=== PATIENT | female | born 1950 | race Caucasian/White ===

== ENCOUNTER 2018-01-17 20:10 | Inpatient (IN) | payer MEDICAID, OTHER ==
[2018-01-17] MEDS: ASPIRIN 325 MG TAB PO (21:40)
[2018-01-17] MEDS: NITROGLYCERIN 2% 1 GM OINT PKT TD (21:40)
[2018-01-17 21:45] LABS: ADD MAN DIFF? NO
[2018-01-17 21:48] LABS: WHITE BLOOD COUNT 8.7 10^3/ul (4.8-10.8)
[2018-01-17 21:48] LABS: BASOPHIL # 0.1 10^3/ul (0.0-0.1); BASOPHILS % 1.1 % (0.0-2.0); EOSINOPHILS # 0.1 10^3/ul (0.0-0.5); HEMATOCRIT 47.2 % (37.0-47.0); HEMOGLOBIN 15.7 g/dl (12.0-16.0); LYMPHOCYTES # 2.7 10^3/ul (0.8-2.9); LYMPHOCYTES % 31.4 % (15.0-51.0); MEAN CORPUSCULAR HEMOGLOBIN 28.4 pg (29.0-33.0); MEAN CORPUSCULAR HGB CONC 33.3 g/dl (32.0-37.0); MEAN CORPUSCULAR VOLUME 85.5 fl (82.0-101.0); MEAN PLATELET VOLUME 10.9 fl (7.4-10.4); MONOCYTE # 0.7 10^3/ul (0.3-0.9); MONOCYTES % 7.6 % (0.0-11.0); NEUTROPHIL # 5.1 10^3/ul (1.6-7.5); NEUTROPHILS % 58.6 % (39.0-77.0); PLATELET COUNT 270 10^3/UL (140-415); RED BLOOD COUNT 5.52 10^6/ul (4.20-5.40); RED CELL DISTRIBUTION WIDTH 12.5 % (11.5-14.5)
[2018-01-17 22:12] LABS: ALANINE AMINOTRANSFERASE 32 IU/L (13-69); ALBUMIN 4.7 g/dl (3.3-4.9); ALBUMIN/GLOBULIN RATIO 1.42; ALKALINE PHOSPHATASE 92 IU/L (42-121); ANION GAP 20 (8-16); ASPARTATE AMINO TRANSFERASE 23 IU/L (15-46); BILIRUBIN,INDIRECT 0.4 mg/dl (0-1.1); BILIRUBIN,TOTAL 0.4 mg/dl (0.2-1.3); BLOOD UREA NITROGEN 14 mg/dl (7-20); CALCIUM 9.7 mg/dl (8.4-10.2); CARBON DIOXIDE 23 mmol/L (21-31); CHLORIDE 108 mmol/L (97-110); CREATININE 0.64 mg/dl (0.44-1.00); GLUCOSE 167 mg/dl (70-220); POTASSIUM 3.8 mmol/L (3.5-5.1); SODIUM 147 mmol/L (135-144)
[2018-01-17] MEDS ORDERED: ONDANSETRON 4 MG INJ IV (22:30)
[2018-01-17] MEDS ORDERED: ACETAMINOPHEN 325 MG TAB PO ×2 (22:30→23:30)
[2018-01-17 22:54] LABS: TROPONIN-I 0.468 ng/ml (0.000-0.120)
[2018-01-17] MEDS: morphine 2 MG INJ IV (23:30)
[2018-01-17] MEDS: ENOXAPARIN 80 MG/0.8 ML SYG SC (23:30)
[2018-01-17] MEDS ORDERED: hydrALAzine 20 MG INJ IV (23:30)
[2018-01-17] MEDS ORDERED: BISACODYL (EC) 5 MG TAB PO (23:30)
[2018-01-17] MEDS ORDERED: NACL 0.9% 3 ML SYG IV (23:30)
[2018-01-17] MEDS ORDERED: NITROGLYCERIN (SL) 0.4 MG TAB SL (23:30)
[2018-01-17] MEDS: ONDANSETRON 4 MG INJ IV (23:30)
[2018-01-18] MEDS: PANTOPRAZOLE (EC) 40 MG TAB PO ×2 (00:15→08:30)
[2018-01-18] MEDS: LISINOPRIL 5 MG TAB PO (00:15)
[2018-01-18] MEDS: SOD CHLORIDE 0.9% 1,000 ML IV ×3 (00:15→12:36)
[2018-01-18 01:08] LABS: CREATINE KINASE 111 IU/L (23-200)
[2018-01-18 01:21] LABS: CK INDEX 6.9; CK-MB 7.61 ng/ml (0.0-2.4); TROPONIN-I 0.906 ng/ml (0.000-0.120)
[2018-01-18] MEDS ORDERED: GLUCOSE GEL 15 GRAM TUBE BUCCAL (06:00)
[2018-01-18] MEDS ORDERED: GLUCOSE GEL 15 GRAM TUBE PO ×2 (06:00)
[2018-01-18] MEDS ORDERED: GLUCAGON 1 MG INJ IM (06:00)
[2018-01-18] MEDS ORDERED: DEXTROSE 50% 50 ML SYRINGE IV ×4 (06:00→20:30)
[2018-01-18 06:39] LABS: ADD MAN DIFF? NO
[2018-01-18 06:55] LABS: WHITE BLOOD COUNT 6.9 10^3/ul (4.8-10.8)
[2018-01-18 06:55] LABS: BASOPHIL # 0.1 10^3/ul (0.0-0.1); BASOPHILS % 1.2 % (0.0-2.0); EOSINOPHILS # 0.1 10^3/ul (0.0-0.5); EOSINOPHILS % 1.7 % (0.0-7.0); HEMATOCRIT 41.2 % (37.0-47.0); HEMOGLOBIN 13.4 g/dl (12.0-16.0); LYMPHOCYTES # 2.8 10^3/ul (0.8-2.9); LYMPHOCYTES % 40.7 % (15.0-51.0); MEAN CORPUSCULAR HEMOGLOBIN 28.7 pg (29.0-33.0); MEAN CORPUSCULAR HGB CONC 32.5 g/dl (32.0-37.0); MEAN CORPUSCULAR VOLUME 88.2 fl (82.0-101.0); MEAN PLATELET VOLUME 11.4 fl (7.4-10.4); MONOCYTE # 0.6 10^3/ul (0.3-0.9); MONOCYTES % 8.2 % (0.0-11.0); NEUTROPHIL # 3.3 10^3/ul (1.6-7.5); NEUTROPHILS % 48.1 % (39.0-77.0); PLATELET COUNT 248 10^3/UL (140-415); RED BLOOD COUNT 4.67 10^6/ul (4.20-5.40)
[2018-01-18] MEDS ORDERED: ALBUMIN HUMAN 25% 100 ML INJ (07:00)
[2018-01-18] MEDS ORDERED: NITROGLYCERIN 50 MG/D5W 250 ML BTL (07:00)
[2018-01-18 07:02] LABS: HEMOGLOBIN A1C 8.7 % (0-5.9)
[2018-01-18 07:25] LABS: ALANINE AMINOTRANSFERASE 31 IU/L (13-69); ALBUMIN 3.6 g/dl (3.3-4.9); ALBUMIN/GLOBULIN RATIO 1.38; ALKALINE PHOSPHATASE 65 IU/L (42-121); ANION GAP 12 (8-16); ASPARTATE AMINO TRANSFERASE 38 IU/L (15-46); BILIRUBIN,INDIRECT 0.4 mg/dl (0-1.1); BILIRUBIN,TOTAL 0.4 mg/dl (0.2-1.3); BLOOD UREA NITROGEN 14 mg/dl (7-20); CALCIUM 9.1 mg/dl (8.4-10.2); CARBON DIOXIDE 28 mmol/L (21-31); CHLORIDE 111 mmol/L (97-110); CHOL/HDL RATIO 7.3 RATIO; CHOLESTEROL 243 mg/dl (100-200); CREATININE 0.64 mg/dl (0.44-1.00); GLUCOSE 118 mg/dl (70-220); HDL CHOLESTEROL 33 mg/dl (35-98); LDL CHOLESTEROL,CALCULATED 170 mg/dl; MAGNESIUM 2.1 mg/dl (1.7-2.5); POTASSIUM 4.1 mmol/L (3.5-5.1); SODIUM 147 mmol/L (135-144); TOTAL PROTEIN 6.2 g/dl (6.1-8.1); TRIGLYCERIDES 199 mg/dl (0-149)
[2018-01-18 07:30] LABS: CK INDEX 9.2; CREATINE KINASE 184 IU/L (23-200)
[2018-01-18] MEDS: ASPIRIN 81 MG TAB PO (08:30)
[2018-01-18] MEDS: INSULIN ASPART [NOVOLOG] 3 ML PEN SC ×2 (08:30→13:00)
[2018-01-18] MEDS ORDERED: ENOXAPARIN 80 MG/0.8 ML SYG SC (09:00)
[2018-01-18] MEDS ORDERED: ENOXAPARIN 100 MG/ML SYG SC (09:00)
[2018-01-18] MEDS: HEPARIN 1000 UNITS/ML 10 ML INJ IV (10:26)
[2018-01-18] MEDS: HEPARIN 25000 UNITS/250 ML 250 ML IV (10:27)
[2018-01-18 10:36] LABS: ADD MAN DIFF? NO
[2018-01-18 10:41] LABS: BASOPHIL # 0.1 10^3/ul (0.0-0.1); BASOPHILS % 0.9 % (0.0-2.0); EOSINOPHILS # 0.1 10^3/ul (0.0-0.5); EOSINOPHILS % 1.2 % (0.0-7.0); HEMATOCRIT 40.9 % (37.0-47.0); HEMOGLOBIN 13.7 g/dl (12.0-16.0); LYMPHOCYTES # 2.2 10^3/ul (0.8-2.9); LYMPHOCYTES % 28.2 % (15.0-51.0); MEAN CORPUSCULAR HEMOGLOBIN 29.1 pg (29.0-33.0); MEAN CORPUSCULAR HGB CONC 33.5 g/dl (32.0-37.0); MONOCYTE # 0.7 10^3/ul (0.3-0.9); MONOCYTES % 8.4 % (0.0-11.0); NEUTROPHIL # 4.7 10^3/ul (1.6-7.5); NEUTROPHILS % 61.2 % (39.0-77.0); PLATELET COUNT 260 10^3/UL (140-415); RED CELL DISTRIBUTION WIDTH 12.8 % (11.5-14.5)
[2018-01-18 10:41] LABS: WHITE BLOOD COUNT 7.7 10^3/ul (4.8-10.8)
[2018-01-18 11:00] LABS: INR 0.94; PROTIME 12.7 Sec (11.9-14.9)
[2018-01-18 11:01] LABS: PARTIAL THROMBOPLASTIN TIME 34.9 Sec (25.0-35.0)
[2018-01-18] MEDS ORDERED: LIDOCAINE 1% (MDV) 20 ML INJ (11:37)
[2018-01-18] MEDS ORDERED: HEPARIN 1000 UNITS/NS (A-LINE) 1,000 ML ×2 (11:37→11:39)
[2018-01-18] MEDS ORDERED: VERAPAMIL 5 MG INJ (12:05)
[2018-01-18] MEDS ORDERED: HEPARIN 1000 UNITS/ML 10 ML INJ ×4 (12:05→15:59)
[2018-01-18] MEDS ORDERED: NITROGLYCERIN (IC) 100 MCG/ML INJ (12:06)
[2018-01-18] MEDS ORDERED: FENTAnyl 50 MCG/ML VIAL (12:14)
[2018-01-18] MEDS ORDERED: ACETAMINOPHEN 325 MG TAB PO (13:00)
[2018-01-18] MEDS ORDERED: ONDANSETRON 4 MG INJ IV ×2 (13:00→20:30)
[2018-01-18] MEDS ORDERED: AL HYDROX/MG HYDROX/SIMETH 30 ML CUP PO (13:00)
[2018-01-18] MEDS ORDERED: SODIUM CL BACTERIOSTATIC 30 ML INJ (13:26)
[2018-01-18] MEDS: CEFAZOLIN 2 GM/50 ML (PMX) 50 ML IVPB (14:00)
[2018-01-18] MEDS ORDERED: TRANEXAMIC ACID 1,000 MG/10 ML VIAL (14:00)
[2018-01-18 14:30] LABS: PARTIAL THROMBOPLASTIN TIME 40.1 Sec (25.0-35.0)
[2018-01-18] MEDS: PHENYLephrine 20MG IN 250 ML 250 ML IV (14:30)
[2018-01-18] MEDS: INSULIN HUMAN REGULAR 100 UNIT in SOD CHLORIDE 0.9% 99 ML IVPB (14:30)
[2018-01-18] MEDS: HEPARIN (10000 UNITS/ML) 10,000 UNIT, MILRINONE LACTATE 10 MG in SOD CHLORIDE 0.9% 1,00... SC (14:30)
[2018-01-18] MEDS: NORepinephrine 8MG/250 ML (PMX 250 ML IV (14:30)
[2018-01-18] MEDS: EPINEPHrine 4 MG in DEXTROSE 5% 246 ML IV (14:30)
[2018-01-18] MEDS: MILRINONE LACTATE 2 MG in SOD CHLORIDE 0.9% 50 ML IV (14:30)
[2018-01-18] MEDS ORDERED: ETOMIDATE 20 MG INJ (14:48)
[2018-01-18] MEDS ORDERED: LIDOCAINE 2% (SDV) 5 ML INJ (14:48)
[2018-01-18] MEDS ORDERED: PROPOFOL 100 ML (14:48)
[2018-01-18] MEDS ORDERED: ROCURONIUM 50 MG INJ (14:48)
[2018-01-18] MEDS ORDERED: MIDAZOLAM 5 ML ×2 (14:48)
[2018-01-18] MEDS ORDERED: SUCCINYLCHOLINE CHLORIDE 100 MG/5 ML SYG IV (14:49)
[2018-01-18] MEDS ORDERED: PROTAMINE 250 MG INJ ×2 (14:49→18:35)
[2018-01-18] MEDS ORDERED: MAGNESIUM SULFATE (MG) 50% 10 ML INJ (14:55)
[2018-01-18] MEDS ORDERED: NA BICARBONATE 8.4% 50 ML SYG (14:55)
[2018-01-18] MEDS ORDERED: POTASSIUM CHLORIDE 40 MEQ INJ (14:55)
[2018-01-18] MEDS ORDERED: ALBUMIN HUMAN 25% 200 ML (14:56)
[2018-01-18] MEDS ORDERED: CA CHLORIDE 10% 10 ML SYRINGE ×2 (14:56→18:17)
[2018-01-18] MEDS ORDERED: PHENYLephrine 10 MG INJ (14:56)
[2018-01-18] MEDS ORDERED: LIDOCAINE 100 MG SYRINGE (14:56)
[2018-01-18] MEDS ORDERED: MANNITOL 20% 250 ML IV (14:56)
[2018-01-18] MEDS ORDERED: morphine 10 MG INJ ×2 (15:57→16:36)
[2018-01-18] MEDS: PAPAVERINE 60 MG INJ (16:11)
[2018-01-18] MEDS: HEPARIN 1000 UNITS/ML 10 ML INJ (16:12)
[2018-01-18] MEDS: VANCOMYCIN 1 GM INJ (16:12)
[2018-01-18] MEDS ORDERED: FUROSEMIDE 10 ML (17:25)
[2018-01-18] MEDS ORDERED: HYDROmorphONE 2 MG/ML SYG (19:11)
[2018-01-18] MEDS: ASPIRIN 600 MG SUPP PR (19:40)
[2018-01-18 20:10] LABS: ADD MAN DIFF? NO
[2018-01-18 20:14] LABS: WHITE BLOOD COUNT 18.2 10^3/ul (4.8-10.8)
[2018-01-18 20:14] LABS: BASOPHIL # 0.1 10^3/ul (0.0-0.1); BASOPHILS % 0.3 % (0.0-2.0); EOSINOPHILS # 0.1 10^3/ul (0.0-0.5); EOSINOPHILS % 0.4 % (0.0-7.0); HEMOGLOBIN 9.8 g/dl (12.0-16.0); LYMPHOCYTES # 3.9 10^3/ul (0.8-2.9); LYMPHOCYTES % 21.5 % (15.0-51.0); MEAN CORPUSCULAR HGB CONC 32.7 g/dl (32.0-37.0); MEAN CORPUSCULAR VOLUME 88.8 fl (82.0-101.0); MEAN PLATELET VOLUME 11.3 fl (7.4-10.4); MONOCYTE # 0.2 10^3/ul (0.3-0.9); MONOCYTES % 0.9 % (0.0-11.0); NEUTROPHIL # 13.8 10^3/ul (1.6-7.5); NEUTROPHILS % 76.1 % (39.0-77.0); PLATELET COUNT 173 10^3/UL (140-415); RED BLOOD COUNT 3.38 10^6/ul (4.20-5.40); RED CELL DISTRIBUTION WIDTH 12.8 % (11.5-14.5)
[2018-01-18] MEDS ORDERED: ACETAMINOPHEN 650 MG SUPP PR (20:30)
[2018-01-18] MEDS ORDERED: Treatment of Hypoglycemia: XX (20:30)
[2018-01-18] MEDS ORDERED: MILRINONE LACTATE 100 ML IV (20:30)
[2018-01-18] MEDS ORDERED: POTASSIUM CHLORIDE 150 ML (20:34)
[2018-01-18 20:43] LABS: ANION GAP 18 (8-16); BLOOD UREA NITROGEN 10 mg/dl (7-20); CALCIUM 10.8 mg/dl (8.4-10.2); CARBON DIOXIDE 21 mmol/L (21-31); CHLORIDE 118 mmol/L (97-110); CREATININE 0.67 mg/dl (0.44-1.00); GLUCOSE 178 mg/dl (70-220); MAGNESIUM 2.3 mg/dl (1.7-2.5); POTASSIUM 3.1 mmol/L (3.5-5.1); SODIUM 154 mmol/L (135-144)
[2018-01-18 20:45] LABS: PLATELET COUNT 173 10^3/UL (140-415)
[2018-01-18 20:54] LABS: INR 1.39; PROTIME 17.3 Sec (11.9-14.9); PT RATIO 1.4
[2018-01-18 20:55] LABS: PARTIAL THROMBOPLASTIN TIME 40.1 Sec (25.0-35.0)
[2018-01-18 20:58] LABS: THROMBIN TIME 28.8 SEC (13.8-19.1)
[2018-01-18] MEDS: MEPERIDINE 25 MG INJ IV (21:00)
[2018-01-18] MEDS ORDERED: CLEVIDIPINE BUTYRATE 50 ML IV (21:00)
[2018-01-18] MEDS: ACCU-CHEK XX ×3 (21:00→23:54)
[2018-01-18 21:03] LABS: AADO2 Arterial 368.1 mmHg (7.0-24.0); Arterial Base Excess -9.5 mmol/L (-3.0-3); Arterial Blood Gas Oxygen Sat 93.3 mmHG (95.0-98.0); Arterial COHb 0.4 % (0.0-3.0); Arterial Fraction of Oxyhgb 92.6 % (93.0-99.0); Arterial MetHb 0.4 % (0.0-1.5); Arterial Total Hemglobin 12.4 g/dl (12.0-18.0); Arterial pCO2 45.1 mmhg (35-45); MODE VENT - AC; Site A-Line
[2018-01-18 21:06] LABS: MODE VENT - AC; MetHgb Mixed Venous 0.5 %; Mixed Venous Base Excess -7.7 mmol/L; Mixed Venous COHb 0 %; Mixed Venous Fraction OxyHgb 83.1 %; Mixed Venous Oxygen Sat 83.5 mmHG (65.0-75.0); Mixed Venous Total Hemglobin 10.6 g/dl; Sample Type Blood venous; Site VENOUS LINE
[2018-01-18 21:07] LABS: FIBRIN SPLIT PRODUCT <10 ug/ml (<10)
[2018-01-18] MEDS: NA BICARBONATE 8.4% 50 ML SYG IV (21:18)
[2018-01-18] MEDS: ALBUMIN HUMAN 5% 250 ML IV ×2 (21:19→23:20)
[2018-01-18 21:23] LABS: D-DIMER < 220.00 ng/ml (<460)
[2018-01-18] MEDS ORDERED: CLEVIDIPINE BUTYRATE 100 ML IV (21:30)
[2018-01-18] MEDS: POTASSIUM CHLORIDE 40 MEQ, CALCIUM CHLORIDE 10% 1 GM in DEXTROSE 5%-0.225% NACL 1,000 ML IV (21:34)
[2018-01-18] MEDS: INSULIN HUMAN REGULAR 100 UNIT in SOD CHLORIDE 0.9% 99 ML IV (21:53)
[2018-01-18] MEDS: POTASSIUM CHLORIDE 50 ML IVPB ×2 (22:03→23:17)
[2018-01-18 22:14] LABS: AADO2 Arterial 384.9 mmHg (7.0-24.0); Arterial Base Excess -2.3 mmol/L (-3.0-3); Arterial Blood Gas Oxygen Sat 95.1 mmHG (95.0-98.0); Arterial COHb 0.3 % (0.0-3.0); Arterial Fraction of Oxyhgb 94.5 % (93.0-99.0); Arterial HCO3 21.2 mmol/L (22.0-26.0); Arterial MetHb 0.3 % (0.0-1.5); Arterial Total Hemglobin 11.2 g/dl (12.0-18.0); Arterial pCO2 32.2 mmhg (35-45); MODE VENT - AC; Site A-Line
[2018-01-18] MEDS: CEFAZOLIN 1 GM/50 ML (PMX) 50 ML IVPB (22:16)
[2018-01-18] MEDS: ATORVASTATIN 40 MG TAB PO (22:16)
[2018-01-19] MEDS: POTASSIUM CHLORIDE 40 MEQ in DEXTROSE 5%-0.225% NACL 1,000 ML IV ×2 (01:16→19:08)
[2018-01-19 01:46] LABS: ADD MAN DIFF? NO
[2018-01-19] MEDS: ACCU-CHEK XX ×24 (01:46→23:01)
[2018-01-19 01:48] LABS: BASOPHILS % 0.2 % (0.0-2.0); HEMOGLOBIN 9.7 g/dl (12.0-16.0); LYMPHOCYTES # 0.7 10^3/ul (0.8-2.9); LYMPHOCYTES % 8.2 % (15.0-51.0); MEAN CORPUSCULAR HGB CONC 33.4 g/dl (32.0-37.0); MEAN CORPUSCULAR VOLUME 86.8 fl (82.0-101.0); MEAN PLATELET VOLUME 10.6 fl (7.4-10.4); MONOCYTE # 0.7 10^3/ul (0.3-0.9); MONOCYTES % 8.1 % (0.0-11.0); NEUTROPHIL # 7.5 10^3/ul (1.6-7.5); NEUTROPHILS % 83.2 % (39.0-77.0); PLATELET COUNT 152 10^3/UL (140-415); RED BLOOD COUNT 3.34 10^6/ul (4.20-5.40)
[2018-01-19] MEDS ORDERED: ACCU-CHEK XX (02:00)
[2018-01-19 02:06] LABS: ANION GAP 12 (8-16); BLOOD UREA NITROGEN 9 mg/dl (7-20); CALCIUM 10.1 mg/dl (8.4-10.2); CARBON DIOXIDE 28 mmol/L (21-31); CHLORIDE 114 mmol/L (97-110); CREATININE 0.64 mg/dl (0.44-1.00); GLUCOSE 165 mg/dl (70-220); MAGNESIUM 2.1 mg/dl (1.7-2.5); POTASSIUM 3.9 mmol/L (3.5-5.1); SODIUM 150 mmol/L (135-144)
[2018-01-19 02:09] LABS: INR 1.16; PT RATIO 1.2
[2018-01-19] MEDS: morphine 2 MG INJ IV ×4 (02:09→21:01)
[2018-01-19] MEDS: PROPOFOL 100 ML IV ×3 (02:14→23:03)
[2018-01-19] MEDS: POTASSIUM CHLORIDE 50 ML IVPB ×5 (03:19→22:22)
[2018-01-19] MEDS: SOD CHLORIDE 0.9% 500 ML IV ×2 (04:15→21:27)
[2018-01-19] MEDS: CEFAZOLIN 1 GM/50 ML (PMX) 50 ML IVPB ×2 (04:19→12:30)
[2018-01-19 05:59] LABS: Arterial Base Excess -4.7 mmol/L (-3.0-3); Arterial Blood Gas Oxygen Sat 96.6 mmHG (95.0-98.0); Arterial COHb 0.3 % (0.0-3.0); Arterial Fraction of Oxyhgb 95.9 % (93.0-99.0); Arterial MetHb 0.4 % (0.0-1.5); Arterial Total Hemglobin 9.1 g/dl (12.0-18.0); Arterial pCO2 25.2 mmhg (35-45); MODE VENT - AC; Site A-Line
[2018-01-19 06:11] LABS: MAGNESIUM 1.9 mg/dl (1.7-2.5)
[2018-01-19 06:40] LABS: INR 1.27; PROTIME 16.1 Sec (11.9-14.9); PT RATIO 1.3
[2018-01-19 06:41] LABS: PARTIAL THROMBOPLASTIN TIME 41.7 Sec (25.0-35.0)
[2018-01-19] MEDS: NACL 3% FOR INHALATION 15 ML NEBU NEB (07:00)
[2018-01-19] MEDS: NITROGLYCERIN 50 MG/D5W (PMX) 250 ML IV ×2 (07:00→21:28)
[2018-01-19] MEDS: HYDROmorphONE 0.5 MG/0.5 ML SYG IV ×4 (07:58→15:47)
[2018-01-19] MEDS ORDERED: morphine 2 MG INJ IV (08:30)
[2018-01-19] MEDS ORDERED: GLUCAGON 1 MG INJ IM (08:30)
[2018-01-19] MEDS ORDERED: GLUCOSE GEL 15 GRAM TUBE BUCCAL (08:30)
[2018-01-19] MEDS ORDERED: ONDANSETRON 4 MG INJ IV (08:30)
[2018-01-19] MEDS ORDERED: DEXTROSE 50% 50 ML SYRINGE IV (08:30)
[2018-01-19] MEDS: PANTOPRAZOLE (EC) 40 MG TAB PO ×2 (08:30→09:00)
[2018-01-19] MEDS ORDERED: ACETAMINOPHEN 325 MG TAB PO (08:30)
[2018-01-19] MEDS: FAMOTIDINE 20 MG INJ IV ×2 (08:46→19:52)
[2018-01-19] MEDS: MAGNESIUM SULFATE 2 GM/50 ML 50 ML IVPB (08:46)
[2018-01-19] MEDS: ASPIRIN 81 MG TAB PO (09:00)
[2018-01-19] MEDS ORDERED: FAMOTIDINE 20 MG TAB PO (09:00)
[2018-01-19 10:46] LABS: ADD MAN DIFF? NO
[2018-01-19 10:50] LABS: BASOPHILS % 0.2 % (0.0-2.0); HEMATOCRIT 30.3 % (37.0-47.0); HEMOGLOBIN 9.7 g/dl (12.0-16.0); LYMPHOCYTES % 10.5 % (15.0-51.0); MEAN CORPUSCULAR VOLUME 90.4 fl (82.0-101.0); MEAN PLATELET VOLUME 11.2 fl (7.4-10.4); MONOCYTE # 0.8 10^3/ul (0.3-0.9); MONOCYTES % 8.1 % (0.0-11.0); NEUTROPHIL # 7.5 10^3/ul (1.6-7.5); NEUTROPHILS % 80.8 % (39.0-77.0); PLATELET COUNT 153 10^3/UL (140-415); RED BLOOD COUNT 3.35 10^6/ul (4.20-5.40); RED CELL DISTRIBUTION WIDTH 13.1 % (11.5-14.5)
[2018-01-19 10:50] LABS: WHITE BLOOD COUNT 9.3 10^3/ul (4.8-10.8)
[2018-01-19 11:52] LABS: AADO2 Arterial 205.9 mmHg (7.0-24.0); Arterial Base Excess -2.3 mmol/L (-3.0-3); Arterial Blood Gas Oxygen Sat 93.1 mmHG (95.0-98.0); Arterial COHb 0.3 % (0.0-3.0); Arterial Fraction of Oxyhgb 92.8 % (93.0-99.0); Arterial HCO3 22.7 mmol/L (22.0-26.0); Arterial MetHb 0 % (0.0-1.5); Arterial Total Hemglobin 10.6 g/dl (12.0-18.0); Arterial pCO2 39.9 mmhg (35-45); Blood Gas PS 10; MODE VENT - CPAP; Site A-Line
[2018-01-19 12:43] LABS: ANION GAP 17 (8-16); BLOOD UREA NITROGEN 8 mg/dl (7-20); CALCIUM 8.8 mg/dl (8.4-10.2); CARBON DIOXIDE 25 mmol/L (21-31); CHLORIDE 114 mmol/L (97-110); CREATININE 0.62 mg/dl (0.44-1.00); GLUCOSE 101 mg/dl (70-220); MAGNESIUM 2.7 mg/dl (1.7-2.5); SODIUM 152 mmol/L (135-144)
[2018-01-19] MEDS ORDERED: FUROSEMIDE 20 MG INJ IV (13:30)
[2018-01-19] MEDS: BENAZEPRIL 5 MG TAB PO (15:30)
[2018-01-19] MEDS: OXYCODONE/ACETAMINOPHEN (5/325) TAB PO (16:54)
[2018-01-19] MEDS: LANSOPRAZOLE 30 MG CAP GTB (18:26)
[2018-01-19] MEDS: INSULIN HUMAN REGULAR 100 UNIT in SOD CHLORIDE 0.9% 99 ML IV (19:11)
[2018-01-19 20:33] LABS: ADD MAN DIFF? NO
[2018-01-19 20:43] LABS: HEMATOCRIT 27.5 % (37.0-47.0)
[2018-01-19 20:44] LABS: BASOPHILS % 0.4 % (0.0-2.0); HEMATOCRIT 27.1 % (37.0-47.0); HEMOGLOBIN 8.8 g/dl (12.0-16.0); LYMPHOCYTES # 1.8 10^3/ul (0.8-2.9); LYMPHOCYTES % 19.7 % (15.0-51.0); MEAN CORPUSCULAR HEMOGLOBIN 28.9 pg (29.0-33.0); MEAN CORPUSCULAR HGB CONC 32.5 g/dl (32.0-37.0); MEAN CORPUSCULAR VOLUME 89.1 fl (82.0-101.0); MEAN PLATELET VOLUME 11.1 fl (7.4-10.4); MONOCYTES % 10.3 % (0.0-11.0); NEUTROPHIL # 6.4 10^3/ul (1.6-7.5); NEUTROPHILS % 69.3 % (39.0-77.0); PLATELET COUNT 128 10^3/UL (140-415); RED BLOOD COUNT 3.04 10^6/ul (4.20-5.40); RED CELL DISTRIBUTION WIDTH 13.2 % (11.5-14.5)
[2018-01-19 20:44] LABS: WHITE BLOOD COUNT 9.3 10^3/ul (4.8-10.8)
[2018-01-19 20:51] LABS: ANION GAP 14 (8-16); BLOOD UREA NITROGEN 9 mg/dl (7-20); CALCIUM 8.6 mg/dl (8.4-10.2); CARBON DIOXIDE 25 mmol/L (21-31); CHLORIDE 111 mmol/L (97-110); GLUCOSE 109 mg/dl (70-220); MAGNESIUM 2.4 mg/dl (1.7-2.5); SODIUM 146 mmol/L (135-144)
[2018-01-19 20:54] LABS: INR 1.23; PROTIME 15.7 Sec (11.9-14.9); PT RATIO 1.2
[2018-01-19 20:55] LABS: PARTIAL THROMBOPLASTIN TIME 36.5 Sec (25.0-35.0)
[2018-01-19] MEDS: ATORVASTATIN 40 MG TAB PO (21:07)
[2018-01-20] MEDS: ACCU-CHEK XX ×23 (00:03→23:06)
[2018-01-20] MEDS: OXYCODONE/ACETAMINOPHEN (5/325) TAB PO ×2 (00:15→04:09)
[2018-01-20] MEDS: POTASSIUM CHLORIDE 50 ML IVPB (00:31)
[2018-01-20 00:55] LABS: COLLAGEN/ADP 113 Secs. (40-147); COLLAGEN/EPI 220 Secs. (51-198)
[2018-01-20] MEDS: morphine 2 MG INJ IV ×4 (02:15→23:04)
[2018-01-20] MEDS: LANSOPRAZOLE 30 MG CAP GTB ×2 (05:30→18:31)
[2018-01-20 06:08] LABS: ADD MAN DIFF? NO
[2018-01-20 06:11] LABS: BASOPHIL # 0.1 10^3/ul (0.0-0.1); BASOPHILS % 0.6 % (0.0-2.0); EOSINOPHILS % 0.4 % (0.0-7.0); HEMATOCRIT 27.4 % (37.0-47.0); HEMOGLOBIN 8.7 g/dl (12.0-16.0); LYMPHOCYTES # 1.7 10^3/ul (0.8-2.9); MEAN CORPUSCULAR HEMOGLOBIN 28.6 pg (29.0-33.0); MEAN CORPUSCULAR HGB CONC 31.8 g/dl (32.0-37.0); MEAN CORPUSCULAR VOLUME 90.1 fl (82.0-101.0); MEAN PLATELET VOLUME 12.3 fl (7.4-10.4); MONOCYTE # 0.9 10^3/ul (0.3-0.9); MONOCYTES % 9.2 % (0.0-11.0); NEUTROPHIL # 7.2 10^3/ul (1.6-7.5); NEUTROPHILS % 72.4 % (39.0-77.0); PLATELET COUNT 125 10^3/UL (140-415); RED BLOOD COUNT 3.04 10^6/ul (4.20-5.40); RED CELL DISTRIBUTION WIDTH 13.2 % (11.5-14.5)
[2018-01-20 06:34] LABS: INR 1.17; PROTIME 15.1 Sec (11.9-14.9); PT RATIO 1.2
[2018-01-20 06:35] LABS: ANION GAP 11 (8-16); BLOOD UREA NITROGEN 8 mg/dl (7-20); CALCIUM 8.5 mg/dl (8.4-10.2); CARBON DIOXIDE 25 mmol/L (21-31); CHLORIDE 112 mmol/L (97-110); CREATININE 0.59 mg/dl (0.44-1.00); GLUCOSE 115 mg/dl (70-220); PARTIAL THROMBOPLASTIN TIME 38.3 Sec (25.0-35.0); POTASSIUM 4.3 mmol/L (3.5-5.1); SODIUM 144 mmol/L (135-144)
[2018-01-20 06:35] LABS: MAGNESIUM 2.3 mg/dl (1.7-2.5)
[2018-01-20] MEDS: FAMOTIDINE 20 MG INJ IV (08:00)
[2018-01-20] MEDS: BENAZEPRIL 5 MG TAB PO (08:50)
[2018-01-20] MEDS: ASPIRIN 81 MG TAB PO (08:50)
[2018-01-20] MEDS: POTASSIUM CHLORIDE 40 MEQ in DEXTROSE 5%-0.225% NACL 1,000 ML IV (10:14)
[2018-01-20] MEDS: DIGOXIN 500 MCG INJ IV (13:06)
[2018-01-20] MEDS: FUROSEMIDE 20 MG INJ IV (13:06)
[2018-01-20] MEDS: PROPOFOL 100 ML IV (14:00)
[2018-01-20] MEDS: ENOXAPARIN 80 MG/0.8 ML SYG SC (17:33)
[2018-01-20] MEDS: ATORVASTATIN 40 MG TAB PO (21:21)
[2018-01-21] MEDS: NITROGLYCERIN 50 MG/D5W (PMX) 250 ML IV (00:41)
[2018-01-21] MEDS: ACCU-CHEK XX ×8 (01:15→08:00)
[2018-01-21] MEDS: PROPOFOL 100 ML IV (02:00)
[2018-01-21] MEDS: INSULIN HUMAN REGULAR 100 UNIT in SOD CHLORIDE 0.9% 99 ML IV (02:53)
[2018-01-21] MEDS: POTASSIUM CHLORIDE 40 MEQ in DEXTROSE 5%-0.225% NACL 1,000 ML IV (03:14)
[2018-01-21] MEDS: morphine 2 MG INJ IV ×2 (04:32→13:00)
[2018-01-21 06:06] LABS: ANION GAP 10 (8-16); BLOOD UREA NITROGEN 8 mg/dl (7-20); CALCIUM 8.3 mg/dl (8.4-10.2); CARBON DIOXIDE 30 mmol/L (21-31); CHLORIDE 107 mmol/L (97-110); CREATININE 0.49 mg/dl (0.44-1.00); GLUCOSE 212 mg/dl (70-220); MAGNESIUM 2.2 mg/dl (1.7-2.5); PHOSPHORUS 2.9 mg/dl (2.5-4.9); POTASSIUM 4.1 mmol/L (3.5-5.1); SODIUM 143 mmol/L (135-144)
[2018-01-21 06:21] LABS: ADD MAN DIFF? NO
[2018-01-21 06:42] LABS: WHITE BLOOD COUNT 9.1 10^3/ul (4.8-10.8)
[2018-01-21 06:42] LABS: BASOPHIL # 0.1 10^3/ul (0.0-0.1); BASOPHILS % 0.7 % (0.0-2.0); EOSINOPHILS # 0.1 10^3/ul (0.0-0.5); EOSINOPHILS % 1.2 % (0.0-7.0); HEMATOCRIT 26.1 % (37.0-47.0); HEMOGLOBIN 8.4 g/dl (12.0-16.0); LYMPHOCYTES # 1.3 10^3/ul (0.8-2.9); LYMPHOCYTES % 13.8 % (15.0-51.0); MEAN CORPUSCULAR HGB CONC 32.2 g/dl (32.0-37.0); MONOCYTE # 0.7 10^3/ul (0.3-0.9); MONOCYTES % 7.6 % (0.0-11.0); NEUTROPHIL # 6.9 10^3/ul (1.6-7.5); NEUTROPHILS % 75.9 % (39.0-77.0); NUCLEATED RED BLOOD CELLS% 0.4 /100WBC (0.0-0.0); PLATELET COUNT 156 10^3/UL (140-415); RED CELL DISTRIBUTION WIDTH 12.5 % (11.5-14.5)
[2018-01-21] MEDS: LANSOPRAZOLE 30 MG CAP GTB ×2 (06:49→17:59)
[2018-01-21] MEDS: ASPIRIN 81 MG TAB PO (07:39)
[2018-01-21] MEDS: OXYCODONE/ACETAMINOPHEN (5/325) TAB PO ×3 (07:40→20:49)
[2018-01-21] MEDS ORDERED: BENAZEPRIL 5 MG TAB PO (09:00)
[2018-01-21] MEDS: Discontinue current oral sulfonylureas (glyburide, glipizide, and/or glimepiride) prior to XX (10:33)
[2018-01-21] MEDS: HYPOGLYCEMIA PROTOCOL when Glucose is <70 mg/dL or symptomatic <90 mg/dL. XX (10:33)
[2018-01-21] MEDS ORDERED: INSULIN ASPART [NOVOLOG] 3 ML PEN SC (11:30)
[2018-01-21] MEDS: INSULIN GLARGINE [LANtus] 3 ML PEN SC (11:35)
[2018-01-21] MEDS: INSULIN ASPART [NOVOLOG] 3 ML PEN SC ×5 (12:28→21:00)
[2018-01-21] MEDS: ENOXAPARIN 80 MG/0.8 ML SYG SC (15:47)
[2018-01-21] MEDS ORDERED: INSULIN GLARGINE [LANtus] 3 ML PEN SC (20:00)
[2018-01-21] MEDS: ATORVASTATIN 40 MG TAB PO (20:49)
[2018-01-22] MEDS: ACCU-CHEK XX (02:00)
[2018-01-22] MEDS: LANSOPRAZOLE 30 MG CAP GTB ×2 (05:29→17:17)
[2018-01-22 07:59] LABS: ADD MAN DIFF? NO
[2018-01-22] MEDS: INSULIN ASPART [NOVOLOG] 3 ML PEN SC ×7 (08:00→21:00)
[2018-01-22 08:03] LABS: BASOPHIL # 0.1 10^3/ul (0.0-0.1); BASOPHILS % 0.8 % (0.0-2.0); EOSINOPHILS # 0.1 10^3/ul (0.0-0.5); EOSINOPHILS % 1.6 % (0.0-7.0); HEMATOCRIT 28.9 % (37.0-47.0); HEMOGLOBIN 9.3 g/dl (12.0-16.0); LYMPHOCYTES # 1.4 10^3/ul (0.8-2.9); LYMPHOCYTES % 18.3 % (15.0-51.0); MEAN CORPUSCULAR HEMOGLOBIN 29.1 pg (29.0-33.0); MEAN CORPUSCULAR HGB CONC 32.2 g/dl (32.0-37.0); MEAN CORPUSCULAR VOLUME 90.3 fl (82.0-101.0); MEAN PLATELET VOLUME 11.3 fl (7.4-10.4); MONOCYTE # 0.7 10^3/ul (0.3-0.9); MONOCYTES % 8.8 % (0.0-11.0); NEUTROPHIL # 5.4 10^3/ul (1.6-7.5); PLATELET COUNT 215 10^3/UL (140-415); RED CELL DISTRIBUTION WIDTH 12.4 % (11.5-14.5)
[2018-01-22 08:03] LABS: WHITE BLOOD COUNT 7.7 10^3/ul (4.8-10.8)
[2018-01-22 08:27] LABS: ANION GAP 16 (8-16); BLOOD UREA NITROGEN 15 mg/dl (7-20); CALCIUM 8.6 mg/dl (8.4-10.2); CARBON DIOXIDE 28 mmol/L (21-31); CHLORIDE 107 mmol/L (97-110); CREATININE 0.59 mg/dl (0.44-1.00); GLUCOSE 143 mg/dl (70-220); POTASSIUM 3.6 mmol/L (3.5-5.1); SODIUM 147 mmol/L (135-144)
[2018-01-22 08:30] LABS: MAGNESIUM 2.3 mg/dl (1.7-2.5)
[2018-01-22] MEDS: BENAZEPRIL 5 MG TAB PO (08:52)
[2018-01-22] MEDS: OXYCODONE/ACETAMINOPHEN (5/325) TAB PO ×2 (08:52→17:17)
[2018-01-22] MEDS: ASPIRIN 81 MG TAB PO (08:53)
[2018-01-22] MEDS: ENOXAPARIN 80 MG/0.8 ML SYG SC (17:17)
[2018-01-22] MEDS: morphine 2 MG INJ IV (18:30)
[2018-01-22] MEDS: ATORVASTATIN 40 MG TAB PO (20:57)
[2018-01-22] MEDS: INSULIN GLARGINE [LANtus] 3 ML PEN SC (21:12)
[2018-01-23] MEDS: ACCU-CHEK XX (01:38)
[2018-01-23] MEDS: OXYCODONE/ACETAMINOPHEN (5/325) TAB PO (03:02)
[2018-01-23] MEDS: LANSOPRAZOLE 30 MG CAP GTB ×2 (05:12→17:31)
[2018-01-23] MEDS: ASPIRIN 81 MG TAB PO (08:10)
[2018-01-23] MEDS: BENAZEPRIL 5 MG TAB PO (08:11)
[2018-01-23] MEDS: INSULIN ASPART [NOVOLOG] 3 ML PEN SC ×7 (08:23→20:30)
[2018-01-23 09:11] LABS: ADD MAN DIFF? NO
[2018-01-23 09:23] LABS: BASOPHIL # 0.1 10^3/ul (0.0-0.1); EOSINOPHILS # 0.2 10^3/ul (0.0-0.5); EOSINOPHILS % 2.9 % (0.0-7.0); HEMATOCRIT 27.8 % (37.0-47.0); HEMOGLOBIN 8.9 g/dl (12.0-16.0); LYMPHOCYTES # 1.7 10^3/ul (0.8-2.9); LYMPHOCYTES % 24.5 % (15.0-51.0); MEAN CORPUSCULAR HEMOGLOBIN 28.8 pg (29.0-33.0); MEAN PLATELET VOLUME 11.2 fl (7.4-10.4); MONOCYTE # 0.6 10^3/ul (0.3-0.9); MONOCYTES % 9.4 % (0.0-11.0); NEUTROPHIL # 4.2 10^3/ul (1.6-7.5); NEUTROPHILS % 61.2 % (39.0-77.0); PLATELET COUNT 214 10^3/UL (140-415); RED BLOOD COUNT 3.09 10^6/ul (4.20-5.40); RED CELL DISTRIBUTION WIDTH 12.4 % (11.5-14.5)
[2018-01-23 09:23] LABS: WHITE BLOOD COUNT 6.8 10^3/ul (4.8-10.8)
[2018-01-23 09:37] LABS: ANION GAP 11 (8-16); BLOOD UREA NITROGEN 17 mg/dl (7-20); CALCIUM 8.1 mg/dl (8.4-10.2); CARBON DIOXIDE 28 mmol/L (21-31); CHLORIDE 109 mmol/L (97-110); CREATININE 0.54 mg/dl (0.44-1.00); GLUCOSE 131 mg/dl (70-220); POTASSIUM 3.3 mmol/L (3.5-5.1); SODIUM 145 mmol/L (135-144)
[2018-01-23] MEDS: POTASSIUM CHLORIDE (SR) 20 MEQ TAB PO (12:03)
[2018-01-23] MEDS: ENOXAPARIN 80 MG/0.8 ML SYG SC (16:18)
[2018-01-23] MEDS: INSULIN GLARGINE [LANtus] 3 ML PEN SC (20:32)
[2018-01-23] MEDS: ATORVASTATIN 40 MG TAB PO (21:11)
[2018-01-24] MEDS: ACCU-CHEK XX (01:58)
[2018-01-24] MEDS: LANSOPRAZOLE 30 MG CAP GTB ×2 (06:19→17:27)
[2018-01-24 09:07] LABS: ADD MAN DIFF? NO
[2018-01-24 09:13] LABS: BASOPHIL # 0.1 10^3/ul (0.0-0.1); BASOPHILS % 0.9 % (0.0-2.0); EOSINOPHILS # 0.2 10^3/ul (0.0-0.5); EOSINOPHILS % 2.4 % (0.0-7.0); HEMATOCRIT 30.8 % (37.0-47.0); HEMOGLOBIN 9.8 g/dl (12.0-16.0); LYMPHOCYTES # 1.9 10^3/ul (0.8-2.9); LYMPHOCYTES % 23.5 % (15.0-51.0); MEAN CORPUSCULAR HGB CONC 31.8 g/dl (32.0-37.0); MONOCYTE # 0.7 10^3/ul (0.3-0.9); MONOCYTES % 8.1 % (0.0-11.0); NEUTROPHIL # 5.1 10^3/ul (1.6-7.5); NEUTROPHILS % 64.2 % (39.0-77.0); PLATELET COUNT 348 10^3/UL (140-415); RED CELL DISTRIBUTION WIDTH 12.5 % (11.5-14.5)
[2018-01-24] MEDS: INSULIN ASPART [NOVOLOG] 3 ML PEN SC ×7 (09:20→20:11)
[2018-01-24] MEDS: BENAZEPRIL 5 MG TAB PO (09:24)
[2018-01-24] MEDS: ASPIRIN 81 MG TAB PO (09:24)
[2018-01-24 09:48] LABS: ANION GAP 14 (8-16); BLOOD UREA NITROGEN 12 mg/dl (7-20); CARBON DIOXIDE 31 mmol/L (21-31); CHLORIDE 107 mmol/L (97-110); CREATININE 0.61 mg/dl (0.44-1.00); GLUCOSE 143 mg/dl (70-220); SODIUM 148 mmol/L (135-144)
[2018-01-24] MEDS: DEXTROSE 5% 1,000 ML IV (11:30)
[2018-01-24] MEDS: ENOXAPARIN 80 MG/0.8 ML SYG SC (17:32)
[2018-01-24] MEDS: ATORVASTATIN 40 MG TAB PO (20:10)
[2018-01-24] MEDS: INSULIN GLARGINE [LANtus] 3 ML PEN SC (20:18)
[2018-01-25] MEDS: ACCU-CHEK XX (01:46)
[2018-01-25] MEDS: DOCUSATE SODIUM 100 MG CAP PO (05:55)
[2018-01-25] MEDS: LANSOPRAZOLE 30 MG CAP GTB ×2 (05:55→16:50)
[2018-01-25] MEDS: ASPIRIN 81 MG TAB PO (08:15)
[2018-01-25] MEDS: BENAZEPRIL 5 MG TAB PO (08:17)
[2018-01-25] MEDS: INSULIN ASPART [NOVOLOG] 3 ML PEN SC ×6 (08:31→17:53)
[2018-01-25 09:12] LABS: ADD MAN DIFF? NO
[2018-01-25 09:18] LABS: BASOPHIL # 0.1 10^3/ul (0.0-0.1); BASOPHILS % 0.9 % (0.0-2.0); EOSINOPHILS # 0.3 10^3/ul (0.0-0.5); EOSINOPHILS % 2.9 % (0.0-7.0); HEMOGLOBIN 10.3 g/dl (12.0-16.0); LYMPHOCYTES # 2.1 10^3/ul (0.8-2.9); LYMPHOCYTES % 23.9 % (15.0-51.0); MEAN CORPUSCULAR HEMOGLOBIN 28.4 pg (29.0-33.0); MEAN CORPUSCULAR HGB CONC 32.2 g/dl (32.0-37.0); MEAN CORPUSCULAR VOLUME 88.2 fl (82.0-101.0); MEAN PLATELET VOLUME 11.2 fl (7.4-10.4); MONOCYTE # 0.7 10^3/ul (0.3-0.9); MONOCYTES % 8.1 % (0.0-11.0); NEUTROPHIL # 5.7 10^3/ul (1.6-7.5); NEUTROPHILS % 63.4 % (39.0-77.0); PLATELET COUNT 408 10^3/UL (140-415); RED BLOOD COUNT 3.63 10^6/ul (4.20-5.40); RED CELL DISTRIBUTION WIDTH 12.5 % (11.5-14.5)
[2018-01-25 09:18] LABS: WHITE BLOOD COUNT 8.9 10^3/ul (4.8-10.8)
[2018-01-25 09:34] LABS: ANION GAP 11 (8-16); BLOOD UREA NITROGEN 13 mg/dl (7-20); CALCIUM 8.8 mg/dl (8.4-10.2); CARBON DIOXIDE 32 mmol/L (21-31); CHLORIDE 108 mmol/L (97-110); CREATININE 0.61 mg/dl (0.44-1.00); GLUCOSE 157 mg/dl (70-220); POTASSIUM 3.7 mmol/L (3.5-5.1); SODIUM 147 mmol/L (135-144)
[2018-01-25] MEDS: OXYCODONE/ACETAMINOPHEN (5/325) TAB PO ×2 (09:45→17:49)
[2018-01-25] MEDS: ENOXAPARIN 80 MG/0.8 ML SYG SC (16:57)
[2018-01-26] MEDS ORDERED: FUROSEMIDE 20 MG TAB PO (09:00)
== END 2018-01-25 19:00 | disposition home or self-care (01) | DRG 233 ==
LOC: MS4 22:28 → TEL 01-21 18:35 → E/R 20:10 → ICU 01-18 13:50
PROC: 021209W Bypass Coronary Artery, Three Arteries from Aorta with Autologous Venous Tissue, Open Approach (ICD-10-PCS; principal; 2018-01-18 11:35)
PROC: 4A023N7 Measurement of Cardiac Sampling and Pressure, Left Heart, Percutaneous Approach (ICD-10-PCS; 2018-01-18 11:35)
PROC: 06BQ4ZZ Excision of Left Saphenous Vein, Percutaneous Endoscopic Approach (ICD-10-PCS; 2018-01-18 11:35)
PROC: 06BP4ZZ Excision of Right Saphenous Vein, Percutaneous Endoscopic Approach (ICD-10-PCS; 2018-01-18 11:35)
PROC: 02100Z9 Bypass Coronary Artery, One Artery from Left Internal Mammary, Open Approach (ICD-10-PCS; 2018-01-18 11:35)
PROC: 5A1221Z Performance of Cardiac Output, Continuous (ICD-10-PCS; 2018-01-18 11:35)
PROC: B211YZZ Fluoroscopy of Multiple Coronary Arteries using Other Contrast (ICD-10-PCS; 2018-01-18 11:35)
PROC: B215YZZ Fluoroscopy of Left Heart using Other Contrast (ICD-10-PCS; 2018-01-18 11:35)
PROC: 02HP32Z Insertion of Monitoring Device into Pulmonary Trunk, Percutaneous Approach (ICD-10-PCS; 2018-01-18 11:35)
PROC: 5A1223Z Performance of Cardiac Pacing, Continuous (ICD-10-PCS; 2018-01-18 11:35)
DX: I21.4 Non-ST elevation (NSTEMI) myocardial infarction (principal); J95.821 Acute postprocedural respiratory failure; E87.0 Hyperosmolality and hypernatremia; E11.9 Type 2 diabetes mellitus without complications; I10 Essential (primary) hypertension; E78.5 Hyperlipidemia, unspecified; D64.9 Anemia, unspecified; K21.9 Gastro-esophageal reflux disease without esophagitis; I25.10 Atherosclerotic heart disease of native coronary artery without angina pectoris; Y83.8 Other surgical procedures as the cause of abnormal reaction of the patient, or of later complication, without mention of misadventure at the time of the procedure; Y92.238 Other place in hospital as the place of occurrence of the external cause
CPT/HCPCS: 36415; 36592; 36600; 71045; 80048; 80053; 80061; 82550; 82553; 82803; 82962; 83036; 83735; 84100; 84443; 84484; 85014; 85025; 85049; 85362; 85378; 85384; 85576; 85610; 85670; 85730; 86850; 86900; 86901; 86920; 87070; 87081; 89220; 93005; 93306; 93312; 93458; 94002; 94003; 94770; 96372; 96374; 96375; 97110; 97116; 97163; 97530; 99291-25; G0378

== ENCOUNTER → 2018-03-27 | Outpatient (CLI) | payer MEDICAID ==
[2018-03-27 07:56] LABS: ADD MAN DIFF? NO
[2018-03-27 07:58] LABS: BASOPHIL # 0.1 10^3/ul (0.0-0.1); BASOPHILS % 1.3 % (0.0-2.0); EOSINOPHILS # 0.3 10^3/ul (0.0-0.5); EOSINOPHILS % 4.1 % (0.0-7.0); HEMATOCRIT 43.8 % (37.0-47.0); HEMOGLOBIN 13.8 g/dl (12.0-16.0); LYMPHOCYTES # 2.5 10^3/ul (0.8-2.9); LYMPHOCYTES % 38.8 % (15.0-51.0); MEAN CORPUSCULAR HEMOGLOBIN 27.3 pg (29.0-33.0); MEAN CORPUSCULAR HGB CONC 31.5 g/dl (32.0-37.0); MEAN CORPUSCULAR VOLUME 86.7 fl (82.0-101.0); MEAN PLATELET VOLUME 10.2 fl (7.4-10.4); MONOCYTE # 0.5 10^3/ul (0.3-0.9); MONOCYTES % 7.1 % (0.0-11.0); NEUTROPHIL # 3.1 10^3/ul (1.6-7.5); NEUTROPHILS % 48.4 % (39.0-77.0); PLATELET COUNT 303 10^3/UL (140-415); RED BLOOD COUNT 5.05 10^6/ul (4.20-5.40); RED CELL DISTRIBUTION WIDTH 13.5 % (11.5-14.5)
[2018-03-27 07:58] LABS: WHITE BLOOD COUNT 6.3 10^3/ul (4.8-10.8)
[2018-03-27 08:18] LABS: INR 0.87; PROTIME 11.9 Sec (11.9-14.9); PT RATIO 0.9
[2018-03-27 08:18] LABS: BLOOD UREA NITROGEN 14 mg/dl (7-20)
[2018-03-27 08:19] LABS: PARTIAL THROMBOPLASTIN TIME 31.4 Sec (25.0-35.0)
== END | disposition home or self-care (01) ==
LOC: LAB 07:38
DX: J90 Pleural effusion, not elsewhere classified (principal); I25.10 Atherosclerotic heart disease of native coronary artery without angina pectoris
CPT/HCPCS: 82565; 84520; 85025; 85610; 85730

== ENCOUNTER 2018-03-29 07:42 | Day surgery (SDC) | payer MEDICAID | END 2018-03-29 10:40 | disposition home or self-care (01) | LOC: SDS 07:42 → GIL 07:44 → SDS 07:42 | DX: R06.02 Shortness of breath (principal); Z53.9 Procedure and treatment not carried out, unspecified reason | CPT/HCPCS: 76604; 82962 ==